=== PATIENT | female | born 1930 | race Caucasian/White ===

== ENCOUNTER 2016-05-22 19:05 | Inpatient (IN) | payer MEDICARE, OTHER ==
[~2016-05-22] VITALS: Ht 162.6 cm; Wt 62.1 kg
[2016-05-23] VITALS (7 sets, daily range): BP systolic 106–139; RESP 16–18; TEMP 97.4–98.4; Ht 162.6 cm; Wt 62.1 kg
[2016-05-23] MEDS ORDERED: CEFTRIAXONE 1 GM VIAL ONE (01:42)
[2016-05-23] MEDS ORDERED: SODIUM CHLORIDE 0.9% 100 ML IV ONE (01:42)
[2016-05-23] MEDS ORDERED: BISACODYL EC 5 MG TAB PO PRN (03:35)
[2016-05-23] MEDS ORDERED: ACETAMINOPHEN 325 MG TAB PO PRN (03:35)
[2016-05-23] MEDS ORDERED: ALU/MAG/SIM 30 ML UDC PO PRN (03:35)
[2016-05-23] MEDS ORDERED: BISACODYL 10 MG SUPP RECTAL PRN (03:35)
[2016-05-23] MEDS ORDERED: MAG HYDROX 30 ML UDC PO PRN (03:35)
[2016-05-23] MEDS ORDERED: SALINE FLUSH 10 ML FLUSH PRN (03:35)
[2016-05-23] MEDS: NEB-ALBUTEROL 2.5 MG/3 ML INH SCH ×3 (05:08→23:08)
[2016-05-23] MEDS: SODIUM CHLORIDE 0.9% FLUSH BAG 500 ML IV SCH (05:58)
[2016-05-23] MEDS: CEFTRIAXONE 1 GM in SODIUM CHLORIDE 0.9% 50 ML IV SCH (09:18)
[2016-05-23] MEDS: SALINE FLUSH 10 ML FLUSH SCH ×2 (09:19→20:25)
[2016-05-23] MEDS: BENZONATATE 100 MG CAP PO SCH ×3 (09:19→20:26)
[2016-05-23] MEDS: AZITHROMYCIN 500 MG in SODIUM CHLORIDE 0.9% 250 ML IV SCH (11:37)
[2016-05-24 03:52] VITALS: BP_SYST 125; RESP 18; TEMP 98.3
[2016-05-24] MEDS: SODIUM CHLORIDE 0.9% FLUSH BAG 500 ML IV SCH (05:11)
[2016-05-24] MEDS: NEB-ALBUTEROL 2.5 MG/3 ML INH SCH ×3 (06:06→23:01)
[2016-05-24 07:44] VITALS: BP_SYST 140; RESP 18; TEMP 100
[2016-05-24] MEDS: BENZONATATE 100 MG CAP PO SCH ×3 (09:00→21:15)
[2016-05-24] MEDS: SALINE FLUSH 10 ML FLUSH SCH ×2 (09:14→21:14)
[2016-05-24] MEDS: CEFTRIAXONE 1 GM in SODIUM CHLORIDE 0.9% 50 ML IV SCH (09:15)
[2016-05-24] MEDS: ONDANSETRON 4 MG VIAL IV PRN ×2 (09:16→19:16)
[2016-05-24] MEDS ORDERED: ACETAMINOPHEN 650 MG SUPP RECTAL ONE (10:20)
[2016-05-24 11:02] VITALS: BP_SYST 128; RESP 20; TEMP 97.7
[2016-05-24] MEDS: FAMOTIDINE 20 MG INJ IV SCH ×2 (11:31→21:14)
[2016-05-24] MEDS: AZITHROMYCIN 500 MG in SODIUM CHLORIDE 0.9% 250 ML IV SCH (12:01)
[2016-05-24] MEDS ORDERED: ASPIRIN 81 MG CHEW TAB PO SCH (14:06)
[2016-05-24] MEDS: KCL CR 20 MEQ TAB PO SCH ×2 (14:52→21:14)
[2016-05-24] MEDS: Furosemide 40 MG TAB PO SCH (14:53)
[2016-05-24] MEDS: ISOSORBIDE MONO 60 MG TAB PO SCH (14:53)
[2016-05-24] MEDS: DILTIAZEM CD 120 MG CAP PO SCH (14:54)
[2016-05-24] MEDS: APIXABAN 2.5 MG TAB PO SCH ×2 (14:54→21:14)
[2016-05-24] MEDS: SACCHA BOULARDII 250MG CAP PO SCH (14:54)
[2016-05-24 15:15] VITALS: BP_SYST 116; RESP 16; TEMP 98.7
[2016-05-24 19:26] VITALS: BP_SYST 102; RESP 16; TEMP 98.3
[2016-05-24 23:43] VITALS: BP_SYST 108; RESP 20; TEMP 98.5
[2016-05-25] VITALS (9 sets, daily range): BP systolic 107–128; RESP 18–20; TEMP 97.4–98.8
[2016-05-25] MEDS: SODIUM CHLORIDE 0.9% FLUSH BAG 500 ML IV SCH (05:06)
[2016-05-25] MEDS: NEB-ALBUTEROL 2.5 MG/3 ML INH SCH (07:58)
[2016-05-25] MEDS: CEFTRIAXONE 1 GM in SODIUM CHLORIDE 0.9% 50 ML IV SCH (08:36)
[2016-05-25] MEDS: SALINE FLUSH 10 ML FLUSH SCH ×2 (08:37→20:05)
[2016-05-25] MEDS: FAMOTIDINE 20 MG INJ IV SCH (08:37)
[2016-05-25] MEDS: DILTIAZEM CD 120 MG CAP PO SCH (08:39)
[2016-05-25] MEDS: APIXABAN 2.5 MG TAB PO SCH ×2 (08:40→20:06)
[2016-05-25] MEDS: SACCHA BOULARDII 250MG CAP PO SCH (08:40)
[2016-05-25] MEDS: ISOSORBIDE MONO 60 MG TAB PO SCH (08:41)
[2016-05-25] MEDS: KCL CR 20 MEQ TAB PO SCH ×2 (08:41→20:06)
[2016-05-25] MEDS: BENZONATATE 100 MG CAP PO SCH ×3 (08:42→20:06)
[2016-05-25] MEDS ORDERED: MISSING DOSE XX ONE ×2 (08:45→10:45)
[2016-05-25] MEDS: AZITHROMYCIN 500 MG in SODIUM CHLORIDE 0.9% 250 ML IV SCH (10:39)
[2016-05-25] MEDS: Furosemide 40 MG TAB PO SCH ×2 (10:40→11:32)
[2016-05-25] MEDS: NEB-ALBUTEROL 2.5 MG/3 ML INH PRN (15:39)
[2016-05-25] MEDS: DUONEB INH SCH (19:19)
[2016-05-25] MEDS: NEB-BUDESONIDE 0.5 MG INH SCH (19:19)
[2016-05-25] MEDS: PREDNISONE 20 MG TAB PO SCH (20:06)
[2016-05-26 03:40] VITALS: BP_SYST 114; RESP 18; TEMP 97.7
[2016-05-26] MEDS: SODIUM CHLORIDE 0.9% FLUSH BAG 500 ML IV SCH (05:00)
[2016-05-26 07:22] VITALS: BP_SYST 122; RESP 16; TEMP 98.1
[2016-05-26] MEDS: NEB-BUDESONIDE 0.5 MG INH SCH ×2 (07:32→19:07)
[2016-05-26] MEDS: DUONEB INH SCH ×3 (07:32→19:07)
[2016-05-26] MEDS: FAMOTIDINE 20 MG INJ IV SCH (07:39)
[2016-05-26] MEDS: NEB-ALBUTEROL 2.5 MG/3 ML INH SCH (07:40)
[2016-05-26] MEDS: BENZONATATE 100 MG CAP PO SCH ×3 (08:20→20:29)
[2016-05-26] MEDS: SALINE FLUSH 10 ML FLUSH SCH ×2 (08:20→20:28)
[2016-05-26] MEDS: SACCHA BOULARDII 250MG CAP PO SCH (08:20)
[2016-05-26] MEDS: CEFTRIAXONE 1 GM in SODIUM CHLORIDE 0.9% 50 ML IV SCH (08:20)
[2016-05-26] MEDS: ISOSORBIDE MONO 60 MG TAB PO SCH (08:20)
[2016-05-26] MEDS: DILTIAZEM CD 120 MG CAP PO SCH (08:21)
[2016-05-26] MEDS: APIXABAN 2.5 MG TAB PO SCH ×2 (08:21→20:29)
[2016-05-26] MEDS: FAMOTIDINE 20 MG TAB PO SCH (08:21)
[2016-05-26] MEDS: KCL CR 20 MEQ TAB PO SCH ×2 (08:21→20:29)
[2016-05-26] MEDS: PREDNISONE 20 MG TAB PO SCH (08:21)
[2016-05-26] MEDS: ONDANSETRON 4 MG VIAL IV PRN (09:45)
[2016-05-26 11:24] VITALS: BP_SYST 118; RESP 18; TEMP 98
[2016-05-26] MEDS ORDERED: METOCLOPRAMIDE 10 MG/2 ML VIAL IV PUSH ONE (12:05)
[2016-05-26 15:15] VITALS: BP_SYST 132; RESP 18; TEMP 98
[2016-05-26 20:10] VITALS: BP_SYST 128; RESP 18; TEMP 98
[2016-05-27] VITALS (7 sets, daily range): BP systolic 105–149; RESP 16–26; TEMP 97.3–99.5
[2016-05-27] MEDS: SODIUM CHLORIDE 0.9% FLUSH BAG 500 ML IV SCH (05:04)
[2016-05-27] MEDS: DUONEB INH SCH ×3 (05:10→19:21)
[2016-05-27] MEDS: NEB-BUDESONIDE 0.5 MG INH SCH ×2 (05:10→19:21)
[2016-05-27] MEDS: Furosemide 40 MG TAB PO SCH (06:32)
[2016-05-27] MEDS ORDERED: PREDNISONE 20 MG TAB PO SCH (09:00)
[2016-05-27] MEDS: SALINE FLUSH 10 ML FLUSH SCH ×2 (09:27→22:03)
[2016-05-27] MEDS: BENZONATATE 100 MG CAP PO SCH ×3 (09:27→22:03)
[2016-05-27] MEDS: CEFTRIAXONE 1 GM in SODIUM CHLORIDE 0.9% 50 ML IV SCH (09:27)
[2016-05-27] MEDS: APIXABAN 2.5 MG TAB PO SCH ×2 (09:27→22:03)
[2016-05-27] MEDS: DILTIAZEM CD 120 MG CAP PO SCH (09:28)
[2016-05-27] MEDS: SACCHA BOULARDII 250MG CAP PO SCH (09:28)
[2016-05-27] MEDS: ISOSORBIDE MONO 60 MG TAB PO SCH (09:28)
[2016-05-27] MEDS: KCL CR 20 MEQ TAB PO SCH ×2 (09:28→22:03)
[2016-05-27] MEDS: FAMOTIDINE 20 MG TAB PO SCH (09:29)
[2016-05-27] MEDS: METHYLPRED SOD SUCC 40 MG VIAL IV SCH (16:13)
[2016-05-27] MEDS: NEB-NACL 3% 4 ML NEBU INH SCH (19:21)
[2016-05-28] MEDS: NEB-NACL 3% 4 ML NEBU INH SCH ×4 (00:30→17:20)
[2016-05-28] MEDS: METHYLPRED SOD SUCC 40 MG VIAL IV SCH ×2 (02:11→10:26)
[2016-05-28 03:27] VITALS: BP_SYST 118; RESP 20; TEMP 97.8
[2016-05-28] MEDS: SODIUM CHLORIDE 0.9% FLUSH BAG 500 ML IV SCH (06:11)
[2016-05-28] MEDS: NEB-BUDESONIDE 0.5 MG INH SCH ×2 (07:06→17:19)
[2016-05-28] MEDS: DUONEB INH SCH ×3 (07:06→17:19)
[2016-05-28 08:05] VITALS: BP_SYST 120; RESP 20; TEMP 98.5
[2016-05-28] MEDS: SALINE FLUSH 10 ML FLUSH SCH ×2 (10:26→20:19)
[2016-05-28] MEDS: Furosemide 40 MG TAB PO SCH (10:26)
[2016-05-28] MEDS: DILTIAZEM CD 120 MG CAP PO SCH (10:26)
[2016-05-28] MEDS: CEFTRIAXONE 1 GM in SODIUM CHLORIDE 0.9% 50 ML IV SCH (10:26)
[2016-05-28] MEDS: FAMOTIDINE 20 MG TAB PO SCH (10:27)
[2016-05-28] MEDS: BENZONATATE 100 MG CAP PO SCH (10:27)
[2016-05-28] MEDS: APIXABAN 2.5 MG TAB PO SCH ×2 (10:27→20:19)
[2016-05-28] MEDS: SACCHA BOULARDII 250MG CAP PO SCH (10:27)
[2016-05-28] MEDS: ISOSORBIDE MONO 60 MG TAB PO SCH (10:27)
[2016-05-28 12:03] VITALS: BP_SYST 110; RESP 20; TEMP 98
[2016-05-28 15:25] VITALS: BP_SYST 138; RESP 20; TEMP 97.9
[2016-05-28 19:23] VITALS: BP_SYST 130; RESP 20; TEMP 98.2
[2016-05-28 23:02] VITALS: BP_SYST 126; RESP 18; TEMP 98
[2016-05-29] MEDS: NEB-NACL 3% 4 ML NEBU INH SCH ×4 (00:30→18:30)
[2016-05-29 03:00] VITALS: BP_SYST 118; RESP 18; TEMP 97.8
[2016-05-29] MEDS: SODIUM CHLORIDE 0.9% FLUSH BAG 500 ML IV SCH (05:58)
[2016-05-29] MEDS: DUONEB INH SCH ×3 (07:24→18:30)
[2016-05-29] MEDS: NEB-BUDESONIDE 0.5 MG INH SCH ×2 (07:24→18:30)
[2016-05-29 07:43] VITALS: BP_SYST 110; RESP 18; TEMP 97.6
[2016-05-29] MEDS: FAMOTIDINE 20 MG TAB PO SCH (10:04)
[2016-05-29] MEDS: Furosemide 20 MG TAB PO SCH (10:04)
[2016-05-29] MEDS: SACCHA BOULARDII 250MG CAP PO SCH (10:04)
[2016-05-29] MEDS: ISOSORBIDE MONO 60 MG TAB PO SCH (10:04)
[2016-05-29] MEDS: DILTIAZEM CD 120 MG CAP PO SCH (10:04)
[2016-05-29] MEDS: APIXABAN 2.5 MG TAB PO SCH ×2 (10:04→21:26)
[2016-05-29] MEDS: PREDNISONE 20 MG TAB PO SCH (10:04)
[2016-05-29 12:03] VITALS: BP_SYST 120; RESP 18; TEMP 97.6
[2016-05-29] MEDS: SALINE FLUSH 10 ML FLUSH SCH ×2 (15:06→21:27)
[2016-05-29] MEDS: CEFTRIAXONE 1 GM in SODIUM CHLORIDE 0.9% 50 ML IV SCH (15:06)
[2016-05-29 15:13] VITALS: BP_SYST 124; RESP 20; TEMP 97.6
[2016-05-29 19:26] VITALS: BP_SYST 138; RESP 20; TEMP 97.9
[2016-05-30] MEDS: NEB-NACL 3% 4 ML NEBU INH SCH ×4 (00:30→20:15)
[2016-05-30 05:44] VITALS: BP_SYST 144; RESP 18; TEMP 95.1
[2016-05-30] MEDS: SODIUM CHLORIDE 0.9% FLUSH BAG 500 ML IV SCH (06:11)
[2016-05-30] MEDS: DUONEB INH SCH ×3 (06:16→20:15)
[2016-05-30] MEDS: NEB-BUDESONIDE 0.5 MG INH SCH ×2 (06:16→20:15)
[2016-05-30 08:24] VITALS: BP_SYST 138; RESP 20; TEMP 97.1
[2016-05-30] MEDS: PREDNISONE 20 MG TAB PO SCH (09:27)
[2016-05-30] MEDS: SALINE FLUSH 10 ML FLUSH SCH ×2 (09:27→21:07)
[2016-05-30] MEDS: DILTIAZEM CD 120 MG CAP PO SCH (09:28)
[2016-05-30] MEDS: APIXABAN 2.5 MG TAB PO SCH ×2 (09:28→21:07)
[2016-05-30] MEDS: FAMOTIDINE 20 MG TAB PO SCH (09:28)
[2016-05-30] MEDS: SACCHA BOULARDII 250MG CAP PO SCH (09:28)
[2016-05-30] MEDS: ISOSORBIDE MONO 60 MG TAB PO SCH (09:28)
[2016-05-30] MEDS: Furosemide 20 MG TAB PO SCH (09:28)
[2016-05-30 12:27] VITALS: BP_SYST 140; RESP 20; TEMP 97.5
[2016-05-30] MEDS: KCL CR 20 MEQ TAB PO SCH ×2 (12:33→21:07)
[2016-05-30 16:01] VITALS: BP_SYST 128; RESP 20; TEMP 97.6
[2016-05-30 20:59] VITALS: BP_SYST 148; RESP 20; TEMP 98.3
[2016-05-30 22:59] VITALS: BP_SYST 150; RESP 20; TEMP 98
[2016-05-31] VITALS (17 sets, daily range): BP systolic 100–155; RESP 15–26; TEMP 97.5–98.2
[2016-05-31] MEDS: BENZONATATE 100 MG CAP PO PRN (00:13)
[2016-05-31] MEDS: NEB-ALBUTEROL 2.5 MG/3 ML INH PRN (00:50)
[2016-05-31] MEDS: NEB-BUDESONIDE 0.5 MG INH SCH ×2 (05:12→19:44)
[2016-05-31] MEDS: DUONEB INH SCH ×3 (05:13→19:44)
[2016-05-31] MEDS: NEB-NACL 3% 4 ML NEBU INH SCH ×2 (05:13→19:46)
[2016-05-31] MEDS: SODIUM CHLORIDE 0.9% FLUSH BAG 500 ML IV SCH (05:22)
[2016-05-31] MEDS: APIXABAN 2.5 MG TAB PO SCH ×2 (10:25→22:05)
[2016-05-31] MEDS: FAMOTIDINE 20 MG TAB PO SCH (10:25)
[2016-05-31] MEDS: ISOSORBIDE MONO 60 MG TAB PO SCH (10:25)
[2016-05-31] MEDS: SALINE FLUSH 10 ML FLUSH SCH ×2 (10:25→20:58)
[2016-05-31] MEDS: SACCHA BOULARDII 250MG CAP PO SCH (10:25)
[2016-05-31] MEDS: DILTIAZEM CD 120 MG CAP PO SCH (10:25)
[2016-05-31] MEDS: Furosemide 20 MG TAB PO SCH (10:26)
[2016-05-31] MEDS: KCL CR 20 MEQ TAB PO SCH (10:26)
[2016-05-31] MEDS: PREDNISONE 20 MG TAB PO SCH (10:26)
[2016-05-31] MEDS ORDERED: NITROGLYCERIN SL 0.4 MG TAB SL ONE (14:27)
[2016-05-31] MEDS ORDERED: MORPHINE 4 MG/ML SYR ONE (14:51)
[2016-05-31] MEDS ORDERED: METOPROLOL 5 MG/5 ML VIAL IV STA (14:56)
[2016-05-31] MEDS ORDERED: MORPHINE 4 MG/ML SYR IV STA (14:56)
[2016-05-31] MEDS ORDERED: CLOPIDOGREL 75 MG TAB PO ONE (15:30)
[2016-05-31] MEDS ORDERED: DEXTROSE 50% SYRINGE 50 ML IV PRN ×2 (15:30→16:15)
[2016-05-31] MEDS ORDERED: NITROGLYCERIN SL 0.4 MG TAB SL PRN (15:30)
[2016-05-31] MEDS ORDERED: LORAZEPAM 0.5 MG TAB PO PRN (15:30)
[2016-05-31] MEDS ORDERED: GLUCAGON 1 MG VIAL IM PRN (15:30)
[2016-05-31] MEDS ORDERED: SALINE FLUSH 10 ML FLUSH PRN (15:30)
[2016-05-31] MEDS ORDERED: MORPHINE 2 MG/ML SYR IV PRN (15:30)
[2016-05-31] MEDS ORDERED: ASPIRIN 81 MG CHEW TAB PO ONE (15:30)
[2016-05-31] MEDS ORDERED: ALU/MAG/SIM 30 ML UDC PO PRN (15:30)
[2016-05-31] MEDS ORDERED: DOCUSATE SOD 100 MG CAP PO PRN (15:30)
[2016-05-31] MEDS ORDERED: METOPROLOL TART 25 MG TAB PO ONE (15:40)
[2016-05-31] MEDS ORDERED: NITROGLYCERIN 2% OINT 1 INCH PKT TOPICAL SCH (16:00)
[2016-05-31] MEDS ORDERED: NITROGLYCERIN 50 MG/250 ML 250 ML IV SCH (16:15)
[2016-05-31] MEDS ORDERED: INSULIN DRIP 1 UNIT/ML 100 ML IV SCH (16:15)
[2016-05-31] MEDS ORDERED: MISSING DOSE XX ONE ×2 (17:25→21:05)
[2016-05-31] MEDS ORDERED: METOPROLOL TART 25 MG TAB PO SCH (21:00)
[2016-05-31] MEDS: METOPROLOL XL 25 MG TAB PO SCH (22:05)
[2016-06-01] VITALS (33 sets, daily range): BP systolic 89–170; RESP 13–27; TEMP 97–98
[2016-06-01] MEDS ORDERED: MISSING DOSE XX ONE ×3 (03:10→14:35)
[2016-06-01] MEDS: BENZONATATE 100 MG CAP PO PRN ×3 (04:33→21:07)
[2016-06-01] MEDS: SODIUM CHLORIDE 0.9% FLUSH BAG 500 ML IV SCH (05:30)
[2016-06-01] MEDS: NEB-NACL 3% 4 ML NEBU INH SCH ×4 (06:30→19:37)
[2016-06-01] MEDS: NEB-BUDESONIDE 0.5 MG INH SCH ×2 (07:48→19:36)
[2016-06-01] MEDS: DUONEB INH SCH ×3 (07:48→19:36)
[2016-06-01] MEDS ORDERED: GLUCAGON 1 MG VIAL IM PRN (08:35)
[2016-06-01] MEDS ORDERED: DEXTROSE 50% SYRINGE 50 ML IV PRN (08:35)
[2016-06-01] MEDS: SACCHA BOULARDII 250MG CAP PO SCH (08:41)
[2016-06-01] MEDS: FAMOTIDINE 20 MG TAB PO SCH ×3 (08:41→21:07)
[2016-06-01] MEDS: APIXABAN 2.5 MG TAB PO SCH ×2 (08:41→21:09)
[2016-06-01] MEDS: DILTIAZEM CD 120 MG CAP PO SCH (08:41)
[2016-06-01] MEDS: Furosemide 20 MG TAB PO SCH (08:42)
[2016-06-01] MEDS: SALINE FLUSH 10 ML FLUSH SCH ×2 (08:42→21:06)
[2016-06-01] MEDS: METOPROLOL XL 25 MG TAB PO SCH ×2 (08:42→21:06)
[2016-06-01] MEDS: ASPIRIN 81 MG CHEW TAB PO SCH (08:42)
[2016-06-01] MEDS ORDERED: PREDNISONE 10 MG TAB PO SCH ×2 (09:00)
[2016-06-01] MEDS: LISINOPRIL 5 MG TAB PO SCH ×2 (09:00→11:11)
[2016-06-01] MEDS ORDERED: ISOSORBIDE MONO 30 MG TAB PO SCH (09:00)
[2016-06-01] MEDS ORDERED: LEVEMIR INSULIN SUBQ SCH (09:00)
[2016-06-01] MEDS: CLOPIDOGREL 75 MG TAB PO SCH ×2 (09:00→11:11)
[2016-06-01] MEDS: SODIUM CHLORIDE 0.45% 1,000 ML IV SCH (09:24)
[2016-06-01] MEDS ORDERED: ISOSORBIDE MONO 30 MG TAB PO ONE (10:40)
[2016-06-01] MEDS ORDERED: INSULIN DRIP 1 UNIT/ML 100 ML IV SCH (13:15)
[2016-06-01] MEDS ORDERED: NITROGLYCERIN SL 0.4 MG TAB SL ONE ×2 (16:07→16:45)
[2016-06-01] MEDS ORDERED: AMIODARONE 150 MG in DEXTROSE 5% 100 ML IV ONE (17:15)
[2016-06-01] MEDS ORDERED: AMIODARONE 900 MG in DEXTROSE 5% EXCEL 500 ML IV SCH (17:15)
[2016-06-01] MEDS: AMIODARONE 450 MG in DEXTROSE 5% AVIVA 250 ML IV SCH (17:59)
[2016-06-01] MEDS ORDERED: NITROGLYCERIN SL 0.4 MG TAB SL PRN (19:15)
[2016-06-01] MEDS: TEMAZEPAM 7.5 MG CAP PO PRN (21:07)
[2016-06-02] VITALS (22 sets, daily range): BP systolic 89–126; RESP 13–25; TEMP 97–98.7
[2016-06-02] MEDS: NEB-NACL 3% 4 ML NEBU INH SCH ×5 (00:30→23:52)
[2016-06-02] MEDS ORDERED: MISSING DOSE XX ONE ×2 (05:10→21:10)
[2016-06-02] MEDS: SODIUM CHLORIDE 0.9% FLUSH BAG 500 ML IV SCH (05:15)
[2016-06-02] MEDS: SODIUM CHLORIDE 0.45% 1,000 ML IV SCH (05:16)
[2016-06-02] MEDS: AMIODARONE 450 MG in DEXTROSE 5% AVIVA 250 ML IV SCH (05:24)
[2016-06-02] MEDS: CLOPIDOGREL 75 MG TAB PO SCH (07:35)
[2016-06-02] MEDS: SACCHA BOULARDII 250MG CAP PO SCH (07:35)
[2016-06-02] MEDS: Furosemide 20 MG TAB PO SCH (07:35)
[2016-06-02] MEDS: FAMOTIDINE 20 MG TAB PO SCH ×2 (07:35→21:10)
[2016-06-02] MEDS: APIXABAN 2.5 MG TAB PO SCH ×2 (07:35→21:10)
[2016-06-02] MEDS: ASPIRIN 81 MG CHEW TAB PO SCH (07:35)
[2016-06-02] MEDS: METOPROLOL XL 25 MG TAB PO SCH ×2 (07:35→21:11)
[2016-06-02] MEDS: BENZONATATE 100 MG CAP PO PRN (07:36)
[2016-06-02] MEDS: ISOSORBIDE MONO 60 MG TAB PO SCH (07:36)
[2016-06-02] MEDS: DUONEB INH SCH ×3 (07:39→20:15)
[2016-06-02] MEDS: NEB-BUDESONIDE 0.5 MG INH SCH ×2 (07:39→20:15)
[2016-06-02] MEDS ORDERED: KCL CR 20 MEQ TAB PO ONE (07:40)
[2016-06-02] MEDS: SALINE FLUSH 10 ML FLUSH SCH ×2 (08:01→20:00)
[2016-06-02] MEDS ORDERED: DEXTROSE 50% SYRINGE 50 ML IV PRN (09:15)
[2016-06-02] MEDS ORDERED: LEVEMIR INSULIN SUBQ ONE (09:15)
[2016-06-02] MEDS ORDERED: GLUCAGON 1 MG VIAL IM PRN (09:15)
[2016-06-02] MEDS: KCL CR 20 MEQ TAB PO SCH (21:10)
[2016-06-02] MEDS: TEMAZEPAM 7.5 MG CAP PO PRN (21:57)
[2016-06-03] VITALS (7 sets, daily range): BP systolic 102–132; RESP 16–20; TEMP 95–98.1
[2016-06-03] MEDS: SODIUM CHLORIDE 0.9% FLUSH BAG 500 ML IV SCH (02:33)
[2016-06-03] MEDS: NEB-NACL 3% 4 ML NEBU INH SCH ×3 (07:49→18:25)
[2016-06-03] MEDS: DUONEB INH SCH ×3 (07:49→18:25)
[2016-06-03] MEDS: NEB-BUDESONIDE 0.5 MG INH SCH ×2 (07:49→18:25)
[2016-06-03] MEDS: SALINE FLUSH 10 ML FLUSH SCH ×2 (08:00→21:01)
[2016-06-03] MEDS ORDERED: LEVEMIR INSULIN SUBQ SCH ×2 (09:00)
[2016-06-03] MEDS: CLOPIDOGREL 75 MG TAB PO SCH (09:52)
[2016-06-03] MEDS: KCL CR 20 MEQ TAB PO SCH ×2 (09:52→21:01)
[2016-06-03] MEDS: FAMOTIDINE 20 MG TAB PO SCH ×2 (09:53→21:01)
[2016-06-03] MEDS: ASPIRIN 81 MG CHEW TAB PO SCH (09:53)
[2016-06-03] MEDS: SACCHA BOULARDII 250MG CAP PO SCH (09:53)
[2016-06-03] MEDS: ISOSORBIDE MONO 60 MG TAB PO SCH (09:53)
[2016-06-03] MEDS: Furosemide 20 MG TAB PO SCH (09:53)
[2016-06-03] MEDS: METOPROLOL XL 25 MG TAB PO SCH ×2 (09:53→21:01)
[2016-06-03] MEDS: APIXABAN 2.5 MG TAB PO SCH ×2 (09:53→21:01)
[2016-06-03] MEDS: LISINOPRIL 5 MG TAB PO SCH (09:53)
[2016-06-03] MEDS ORDERED: Furosemide 40 MG/4 ML VIAL IV ONE (11:05)
[2016-06-03] MEDS ORDERED: KCL CR 20 MEQ TAB PO ONE (11:05)
[2016-06-03] MEDS: SODIUM CHLORIDE 0.45% 1,000 ML IV SCH (14:23)
[2016-06-03] MEDS: AMIODARONE 200 MG TAB PO SCH (15:45)
[2016-06-03] MEDS: BENZONATATE 100 MG CAP PO PRN (15:45)
[2016-06-03] MEDS: SPIRONOLACTONE 25 MG TAB PO SCH (15:46)
[2016-06-03] MEDS ORDERED: PROMETHAZINE 25 MG/ML VIAL IV PRN (16:45)
[2016-06-04] MEDS: NEB-NACL 3% 4 ML NEBU INH SCH ×3 (00:30→11:59)
[2016-06-04 02:53] VITALS: BP_SYST 112; RESP 18; TEMP 97.5
[2016-06-04] MEDS: SODIUM CHLORIDE 0.9% FLUSH BAG 500 ML IV SCH (06:00)
[2016-06-04] MEDS: DUONEB INH SCH ×2 (07:19→11:59)
[2016-06-04] MEDS: NEB-BUDESONIDE 0.5 MG INH SCH (07:19)
[2016-06-04] MEDS: SALINE FLUSH 10 ML FLUSH SCH (07:47)
[2016-06-04 07:48] VITALS: BP_SYST 124; RESP 18
[2016-06-04] MEDS ORDERED: LEVEMIR INSULIN SUBQ SCH (09:00)
[2016-06-04] MEDS ORDERED: MISSING DOSE XX ONE (10:00)
[2016-06-04] MEDS: SODIUM CHLORIDE 0.45% 1,000 ML IV SCH (10:04)
[2016-06-04] MEDS: FAMOTIDINE 20 MG TAB PO SCH (10:06)
[2016-06-04] MEDS: ISOSORBIDE MONO 60 MG TAB PO SCH (10:06)
[2016-06-04] MEDS: APIXABAN 2.5 MG TAB PO SCH (10:06)
[2016-06-04] MEDS: CLOPIDOGREL 75 MG TAB PO SCH (10:06)
[2016-06-04] MEDS: SACCHA BOULARDII 250MG CAP PO SCH (10:07)
[2016-06-04] MEDS: Furosemide 20 MG TAB PO SCH (10:07)
[2016-06-04] MEDS: METOPROLOL XL 25 MG TAB PO SCH (10:07)
[2016-06-04] MEDS: SPIRONOLACTONE 25 MG TAB PO SCH (10:07)
[2016-06-04] MEDS: LISINOPRIL 5 MG TAB PO SCH (10:07)
[2016-06-04] MEDS: ASPIRIN 81 MG CHEW TAB PO SCH (10:07)
[2016-06-04] MEDS: AMIODARONE 200 MG TAB PO SCH (10:07)
[2016-06-04 10:33] VITALS: BP_SYST 116; RESP 16; TEMP 97.8
[2016-06-04] MEDS ORDERED: Furosemide 20 MG TAB PO SCH (11:05)
[2016-06-04] MEDS: KCL CR 20 MEQ TAB PO SCH (12:15)
[2016-06-04 14:24] VITALS: BP_SYST 120; RESP 16; TEMP 97.2
[2016-06-04 15:32] VITALS: BP_SYST 120; RESP 16; TEMP 97.2
== END 2016-06-04 16:20 | DRG 177 ==
LOC: ENRESERVTM → CANRESERV → ENRESERVDT → ER 19:05 → EMR 05-23 01:34 → ENPENDDIS 05-23 01:34 → 4NT 05-23 04:24 → CCU 05-31 16:16 → 4THW 06-02 18:18 → 4NT 06-03 06:26
PROVIDERS: ADMIT Family Medicine; ATTEND Family Medicine
CPT/HCPCS: 36415; 71010; 71020; 71250; 74020; 80048; 80053; 81001; 82550; 82553; 82947; 83735; 83880; 84439; 84443; 84484; 85014; 85018; 85025; 87077; 87088; 87186; 87804; 93005; 93306; 94640; 94799; 96361; 96365; 99223; 99233; 99239

== ENCOUNTER 2016-06-04 10:18 | Inpatient (IN) | payer MEDICARE, OTHER ==
[~2016-06-04] VITALS: Ht 165.1 cm; Wt 59.2 kg
[2016-06-04] MEDS ORDERED: ALU/MAG/SIM 30 ML UDC PO PRN (11:20)
[2016-06-04] MEDS ORDERED: MAG HYDROX 30 ML UDC PO PRN (11:20)
[2016-06-04] MEDS ORDERED: GLUCAGON 1 MG VIAL IM PRN (11:20)
[2016-06-04] MEDS ORDERED: DEXTROSE 50% SYRINGE 50 ML IV PRN (11:20)
[2016-06-04] MEDS ORDERED: PNEUMO VAC 25 MCG/0.5 ML VL IM.VACC ONE (11:20)
[2016-06-04] MEDS ORDERED: POLYETHYLENE GLYCOL 17 GM PACKET PO PRN (11:20)
[2016-06-04] MEDS ORDERED: NITROGLYCERIN SL 0.4 MG TAB SL PRN (11:20)
[2016-06-04] MEDS ORDERED: ACETAMINOPHEN 325 MG TAB PO PRN (11:20)
[2016-06-04 16:47] VITALS: BMI 22.4
[2016-06-04 17:58] VITALS: RESP 16
[2016-06-04] MEDS: DUONEB INH SCH (17:58)
[2016-06-04] MEDS: NEB-BUDESONIDE 0.5 MG INH SCH (17:58)
[2016-06-04 20:11] VITALS: BP_SYST 112; RESP 20; TEMP 98.5
[2016-06-04] MEDS ORDERED: TUBERCULIN PPD 5 UNIT SYR ID.VACC ONE (21:00)
[2016-06-04] MEDS: DONEPEZIL 10 MG TABLET PO SCH (21:28)
[2016-06-04] MEDS: METOPROLOL TART 25 MG TAB PO SCH (21:28)
[2016-06-04] MEDS: FAMOTIDINE 20 MG TAB PO SCH (21:28)
[2016-06-04] MEDS: APIXABAN 2.5 MG TAB PO SCH (21:28)
[2016-06-05 06:35] VITALS: BP_SYST 122; RESP 18; TEMP 97.8
[2016-06-05 07:30] VITALS: BP_SYST 102; RESP 20; TEMP 97.5
[2016-06-05] MEDS: NEB-BUDESONIDE 0.5 MG INH SCH ×2 (07:31→18:53)
[2016-06-05] MEDS: DUONEB INH SCH ×3 (07:31→18:53)
[2016-06-05] MEDS ORDERED: DUONEB INH PRN (08:35)
[2016-06-05] MEDS: FAMOTIDINE 20 MG TAB PO SCH ×2 (08:56→21:08)
[2016-06-05] MEDS: ESCITALOPRAM 10 MG TAB PO SCH (08:56)
[2016-06-05] MEDS: Furosemide 20 MG TAB PO SCH (08:56)
[2016-06-05] MEDS: METOPROLOL TART 25 MG TAB PO SCH ×2 (08:57→21:08)
[2016-06-05] MEDS: APIXABAN 2.5 MG TAB PO SCH ×2 (08:57→21:08)
[2016-06-05] MEDS: ISOSORBIDE MONO 60 MG TAB PO SCH (08:57)
[2016-06-05] MEDS: CLOPIDOGREL 75 MG TAB PO SCH (08:57)
[2016-06-05] MEDS: AMIODARONE 200 MG TAB PO SCH (08:57)
[2016-06-05] MEDS: KCL CR 10 MEQ TAB PO SCH (08:57)
[2016-06-05] MEDS: ASPIRIN 81 MG CHEW TAB PO SCH (08:57)
[2016-06-05] MEDS: LISINOPRIL 5 MG TAB PO SCH (08:57)
[2016-06-05] MEDS: LEVEMIR INSULIN SUBQ SCH (09:27)
[2016-06-05 16:31] VITALS: BP_SYST 118; RESP 18; TEMP 97.8
[2016-06-05] MEDS: NYSTATIN 500,000 UNITS/5 ML SUSP SWISH.SWAL SCH ×2 (17:27→21:10)
[2016-06-05] MEDS: DONEPEZIL 10 MG TABLET PO SCH (21:08)
[2016-06-06 05:31] VITALS: BP_SYST 120; RESP 20; TEMP 97.4
[2016-06-06] MEDS: NEB-BUDESONIDE 0.5 MG INH SCH ×2 (06:51→17:21)
[2016-06-06] MEDS: DUONEB INH SCH ×3 (06:51→17:21)
[2016-06-06] MEDS: LEVEMIR INSULIN SUBQ SCH (09:14)
[2016-06-06] MEDS: FAMOTIDINE 20 MG TAB PO SCH ×2 (09:16→20:43)
[2016-06-06] MEDS: METOPROLOL TART 25 MG TAB PO SCH ×2 (09:16→20:43)
[2016-06-06] MEDS: ESCITALOPRAM 10 MG TAB PO SCH (09:16)
[2016-06-06] MEDS: KCL CR 10 MEQ TAB PO SCH (09:16)
[2016-06-06] MEDS: APIXABAN 2.5 MG TAB PO SCH ×2 (09:16→20:43)
[2016-06-06] MEDS: LISINOPRIL 5 MG TAB PO SCH (09:16)
[2016-06-06] MEDS: CLOPIDOGREL 75 MG TAB PO SCH (09:16)
[2016-06-06] MEDS: ASPIRIN 81 MG CHEW TAB PO SCH (09:16)
[2016-06-06] MEDS: AMIODARONE 200 MG TAB PO SCH (09:16)
[2016-06-06] MEDS: ISOSORBIDE MONO 60 MG TAB PO SCH (09:16)
[2016-06-06] MEDS: Furosemide 20 MG TAB PO SCH (09:16)
[2016-06-06] MEDS: NYSTATIN 500,000 UNITS/5 ML SUSP SWISH.SWAL SCH (09:16)
[2016-06-06] MEDS: ERGOCALCIFEROL 50,000 UNITS (1.25 MG) CAP PO SCH (09:17)
[2016-06-06 10:30] VITALS: BP_SYST 118; RESP 20; TEMP 97.5
[2016-06-06 10:37] VITALS: Ht 165.1 cm; Wt 59.2 kg
[2016-06-06] MEDS ORDERED: [UNRECOGNIZED DRUG - MIXTURE] SWISH.SWAL SCH ×3 (12:29)
[2016-06-06] MEDS: [UNRECOGNIZED DRUG - MIXTURE] SWISH.SWAL SCH ×9 (13:00→23:49)
[2016-06-06 16:58] VITALS: BP_SYST 138; RESP 18; TEMP 98.1
[2016-06-06] MEDS: DONEPEZIL 10 MG TABLET PO SCH (20:43)
[2016-06-06] MEDS ORDERED: SKIN TEST: READ AND RECORD XX SCH (21:00)
[2016-06-06 23:56] VITALS: BP_SYST 110; RESP 18; TEMP 98
[2016-06-07] MEDS: [UNRECOGNIZED DRUG - MIXTURE] SWISH.SWAL SCH ×9 (05:52→18:33)
[2016-06-07] MEDS: NEB-BUDESONIDE 0.5 MG INH SCH ×2 (06:09→19:38)
[2016-06-07] MEDS: DUONEB INH SCH ×3 (06:09→19:38)
[2016-06-07 09:32] VITALS: BP_SYST 112; RESP 18; TEMP 98.1
[2016-06-07] MEDS: FAMOTIDINE 20 MG TAB PO SCH ×2 (09:56→21:22)
[2016-06-07] MEDS: LEVEMIR INSULIN SUBQ SCH (09:56)
[2016-06-07] MEDS: METOPROLOL TART 25 MG TAB PO SCH ×2 (09:56→21:22)
[2016-06-07] MEDS: APIXABAN 2.5 MG TAB PO SCH ×2 (09:56→21:22)
[2016-06-07] MEDS: Furosemide 20 MG TAB PO SCH (09:56)
[2016-06-07] MEDS: KCL CR 10 MEQ TAB PO SCH (09:56)
[2016-06-07] MEDS: LISINOPRIL 5 MG TAB PO SCH (09:57)
[2016-06-07] MEDS: CLOPIDOGREL 75 MG TAB PO SCH (09:57)
[2016-06-07] MEDS: ISOSORBIDE MONO 60 MG TAB PO SCH (09:57)
[2016-06-07] MEDS: AMIODARONE 200 MG TAB PO SCH (09:57)
[2016-06-07] MEDS: ESCITALOPRAM 10 MG TAB PO SCH (09:57)
[2016-06-07] MEDS: ASPIRIN 81 MG CHEW TAB PO SCH (09:57)
[2016-06-07] MEDS: MICONAZOLE 2% PWD TOPICAL SCH ×2 (12:52→21:23)
[2016-06-07 19:49] VITALS: BP_SYST 110; RESP 20; TEMP 97.6
[2016-06-07] MEDS: DONEPEZIL 10 MG TABLET PO SCH (21:47)
[2016-06-08] MEDS: [UNRECOGNIZED DRUG - MIXTURE] SWISH.SWAL SCH ×12 (00:06→18:17)
[2016-06-08 00:10] VITALS: BP_SYST 112; RESP 18; TEMP 97.8
[2016-06-08] MEDS: DUONEB INH SCH ×3 (07:08→19:31)
[2016-06-08] MEDS: NEB-BUDESONIDE 0.5 MG INH SCH ×2 (07:08→19:31)
[2016-06-08] MEDS: ISOSORBIDE MONO 60 MG TAB PO SCH (08:59)
[2016-06-08] MEDS: ESCITALOPRAM 10 MG TAB PO SCH (08:59)
[2016-06-08] MEDS: AMIODARONE 200 MG TAB PO SCH (09:00)
[2016-06-08] MEDS: LISINOPRIL 5 MG TAB PO SCH (09:00)
[2016-06-08] MEDS: APIXABAN 2.5 MG TAB PO SCH ×2 (09:00→23:02)
[2016-06-08] MEDS: KCL CR 10 MEQ TAB PO SCH (09:00)
[2016-06-08] MEDS: Furosemide 20 MG TAB PO SCH (09:00)
[2016-06-08] MEDS: ASPIRIN 81 MG CHEW TAB PO SCH (09:00)
[2016-06-08] MEDS: CLOPIDOGREL 75 MG TAB PO SCH (09:00)
[2016-06-08] MEDS: METOPROLOL TART 25 MG TAB PO SCH ×2 (09:01→23:02)
[2016-06-08] MEDS: MICONAZOLE 2% PWD TOPICAL SCH ×2 (09:01→23:05)
[2016-06-08] MEDS: FAMOTIDINE 20 MG TAB PO SCH ×2 (09:01→23:02)
[2016-06-08 10:04] VITALS: BP_SYST 100; RESP 18; TEMP 97.8
[2016-06-08] MEDS: LEVEMIR INSULIN SUBQ SCH (13:04)
[2016-06-08 16:01] VITALS: BP_SYST 100; RESP 18; TEMP 97.7
[2016-06-08 16:06] VITALS: BP_SYST 90; RESP 18; TEMP 97.1
[2016-06-08] MEDS: DONEPEZIL 10 MG TABLET PO SCH (23:05)
[2016-06-09] MEDS: [UNRECOGNIZED DRUG - MIXTURE] SWISH.SWAL SCH ×9 (00:38→12:00)
[2016-06-09 03:08] VITALS: BP_SYST 102; RESP 18; TEMP 97.8
[2016-06-09] MEDS: NEB-BUDESONIDE 0.5 MG INH SCH ×2 (07:10→18:41)
[2016-06-09] MEDS: DUONEB INH SCH ×3 (07:10→18:41)
[2016-06-09] MEDS: MICONAZOLE 2% PWD TOPICAL SCH ×2 (09:00→21:21)
[2016-06-09] MEDS: ASPIRIN 81 MG CHEW TAB PO SCH (10:15)
[2016-06-09] MEDS: KCL CR 10 MEQ TAB PO SCH (10:15)
[2016-06-09] MEDS: FAMOTIDINE 20 MG TAB PO SCH ×2 (10:15→21:19)
[2016-06-09] MEDS: AMIODARONE 200 MG TAB PO SCH (10:15)
[2016-06-09] MEDS: LISINOPRIL 5 MG TAB PO SCH (10:15)
[2016-06-09] MEDS: APIXABAN 2.5 MG TAB PO SCH ×2 (10:15→21:19)
[2016-06-09] MEDS: ISOSORBIDE MONO 60 MG TAB PO SCH (10:16)
[2016-06-09] MEDS: CLOPIDOGREL 75 MG TAB PO SCH (10:16)
[2016-06-09] MEDS: ESCITALOPRAM 10 MG TAB PO SCH (10:16)
[2016-06-09] MEDS: Furosemide 20 MG TAB PO SCH (10:16)
[2016-06-09] MEDS: METOPROLOL TART 25 MG TAB PO SCH ×2 (10:17→21:20)
[2016-06-09] MEDS: LEVEMIR INSULIN SUBQ SCH (10:18)
[2016-06-09 11:33] VITALS: BP_SYST 110; RESP 20; TEMP 97.4
[2016-06-09 16:08] VITALS: BP_SYST 112; RESP 18; TEMP 97.8
[2016-06-09] MEDS ORDERED: MISSING DOSE XX ONE (19:50)
[2016-06-09] MEDS: DONEPEZIL 10 MG TABLET PO SCH (21:19)
[2016-06-10 03:05] VITALS: BP_SYST 102; RESP 18
[2016-06-10 03:39] VITALS: TEMP 96.7
[2016-06-10] MEDS: NEB-BUDESONIDE 0.5 MG INH SCH (07:16)
[2016-06-10] MEDS: DUONEB INH SCH ×3 (07:16→23:23)
[2016-06-10] MEDS: CLOPIDOGREL 75 MG TAB PO SCH (08:17)
[2016-06-10] MEDS: Furosemide 20 MG TAB PO SCH (08:17)
[2016-06-10] MEDS: ASPIRIN 81 MG CHEW TAB PO SCH (08:17)
[2016-06-10] MEDS: ESCITALOPRAM 10 MG TAB PO SCH (08:17)
[2016-06-10] MEDS: LISINOPRIL 5 MG TAB PO SCH (08:17)
[2016-06-10] MEDS: AMIODARONE 200 MG TAB PO SCH (08:18)
[2016-06-10] MEDS: KCL CR 10 MEQ TAB PO SCH (08:18)
[2016-06-10] MEDS: FAMOTIDINE 20 MG TAB PO SCH ×2 (08:18→21:21)
[2016-06-10] MEDS: METOPROLOL TART 25 MG TAB PO SCH ×2 (08:18→21:21)
[2016-06-10] MEDS: ISOSORBIDE MONO 60 MG TAB PO SCH (08:18)
[2016-06-10] MEDS: APIXABAN 2.5 MG TAB PO SCH ×2 (08:18→21:21)
[2016-06-10] MEDS: MICONAZOLE 2% PWD TOPICAL SCH ×2 (08:19→21:21)
[2016-06-10] MEDS: LEVEMIR INSULIN SUBQ SCH (08:27)
[2016-06-10 10:50] VITALS: RESP 18; TEMP 97.8
[2016-06-10 17:54] VITALS: BP_SYST 104; RESP 20; TEMP 98
[2016-06-10] MEDS: DONEPEZIL 10 MG TABLET PO SCH (21:21)
[2016-06-11 05:36] VITALS: BP_SYST 100; RESP 18
[2016-06-11 05:41] VITALS: TEMP 97.8
[2016-06-11] MEDS: DUONEB INH SCH ×3 (07:40→22:50)
[2016-06-11] MEDS: AMIODARONE 200 MG TAB PO SCH (08:53)
[2016-06-11] MEDS: APIXABAN 2.5 MG TAB PO SCH ×2 (08:54→21:06)
[2016-06-11] MEDS: ISOSORBIDE MONO 60 MG TAB PO SCH (08:54)
[2016-06-11] MEDS: ASPIRIN 81 MG CHEW TAB PO SCH (08:54)
[2016-06-11] MEDS: METOPROLOL TART 25 MG TAB PO SCH ×2 (08:54→21:07)
[2016-06-11] MEDS: CLOPIDOGREL 75 MG TAB PO SCH (08:54)
[2016-06-11] MEDS: ESCITALOPRAM 10 MG TAB PO SCH (08:54)
[2016-06-11] MEDS: FAMOTIDINE 20 MG TAB PO SCH ×2 (08:54→21:06)
[2016-06-11] MEDS: SITAGLIPTIN 50 MG TAB PO SCH (08:54)
[2016-06-11] MEDS: MICONAZOLE 2% PWD TOPICAL SCH ×2 (08:55→21:10)
[2016-06-11] MEDS ORDERED: SITAGLIPTIN 50 MG TAB PO SCH (09:00)
[2016-06-11] MEDS ORDERED: LISINOPRIL 5 MG TAB PO SCH (09:00)
[2016-06-11] MEDS ORDERED: LISINOPRIL 2.5 MG TAB PO SCH (09:00)
[2016-06-11 09:48] VITALS: BP_SYST 100; RESP 18; TEMP 97.8
[2016-06-11 10:15] VITALS: BP_SYST 102; RESP 18; TEMP 98
[2016-06-11 16:25] VITALS: BP_SYST 110; RESP 18; TEMP 97
[2016-06-11 20:44] VITALS: BP_SYST 108; RESP 16; TEMP 98
[2016-06-11] MEDS ORDERED: TUBERCULIN PPD 5 UNIT SYR ID.VACC ONE (21:00)
[2016-06-11] MEDS: DONEPEZIL 10 MG TABLET PO SCH (21:06)
[2016-06-12 03:49] VITALS: BP_SYST 102; RESP 18; TEMP 97.7
[2016-06-12] MEDS: DUONEB INH SCH ×3 (06:56→22:53)
[2016-06-12] MEDS: FAMOTIDINE 20 MG TAB PO SCH ×2 (08:46→20:53)
[2016-06-12] MEDS: APIXABAN 2.5 MG TAB PO SCH ×2 (08:46→20:53)
[2016-06-12] MEDS: SITAGLIPTIN 50 MG TAB PO SCH (08:46)
[2016-06-12] MEDS: MICONAZOLE 2% PWD TOPICAL SCH ×2 (08:46→20:54)
[2016-06-12] MEDS: AMIODARONE 200 MG TAB PO SCH (08:46)
[2016-06-12] MEDS: ASPIRIN 81 MG CHEW TAB PO SCH (08:46)
[2016-06-12] MEDS: METOPROLOL TART 25 MG TAB PO SCH ×2 (08:46→20:53)
[2016-06-12] MEDS: ISOSORBIDE MONO 60 MG TAB PO SCH (08:46)
[2016-06-12] MEDS ORDERED: MISSING DOSE XX ONE (08:55)
[2016-06-12 11:13] VITALS: BP_SYST 118; RESP 16; TEMP 97.1
[2016-06-12] MEDS: ESCITALOPRAM 10 MG TAB PO SCH (12:44)
[2016-06-12] MEDS: Furosemide 20 MG TAB PO SCH (12:44)
[2016-06-12] MEDS: CLOPIDOGREL 75 MG TAB PO SCH (12:44)
[2016-06-12 20:03] VITALS: BP_SYST 108; RESP 20; TEMP 98.2
[2016-06-12] MEDS: DONEPEZIL 10 MG TABLET PO SCH (20:53)
[2016-06-13 03:11] VITALS: BP_SYST 112; RESP 18; TEMP 97.6
[2016-06-13] MEDS: DUONEB INH SCH (06:25)
[2016-06-13 08:35] VITALS: BP_SYST 120; RESP 18; TEMP 98.1
[2016-06-13] MEDS: ASPIRIN 81 MG CHEW TAB PO SCH (08:40)
[2016-06-13] MEDS: Furosemide 20 MG TAB PO SCH (08:40)
[2016-06-13] MEDS: METOPROLOL TART 25 MG TAB PO SCH (08:41)
[2016-06-13] MEDS: ERGOCALCIFEROL 50,000 UNITS (1.25 MG) CAP PO SCH (08:42)
[2016-06-13] MEDS: ESCITALOPRAM 10 MG TAB PO SCH (08:42)
[2016-06-13] MEDS: FAMOTIDINE 20 MG TAB PO SCH (08:42)
[2016-06-13] MEDS: SITAGLIPTIN 50 MG TAB PO SCH (08:42)
[2016-06-13] MEDS: ISOSORBIDE MONO 60 MG TAB PO SCH (08:42)
[2016-06-13] MEDS: APIXABAN 2.5 MG TAB PO SCH (08:42)
[2016-06-13] MEDS: AMIODARONE 200 MG TAB PO SCH (08:42)
[2016-06-13] MEDS: CLOPIDOGREL 75 MG TAB PO SCH (08:42)
[2016-06-13] MEDS: MICONAZOLE 2% PWD TOPICAL SCH (08:47)
[2016-06-13] MEDS ORDERED: KCL CR 20 MEQ TAB PO ONE (09:55)
== END 2016-06-13 11:18 | disposition home health service (06) | DRG 555 ==
LOC: NF 16:50 → ENPENDDIS 16:50 → NF 06-06 13:38
PROVIDERS: ADMIT Internal Medicine; ATTEND Internal Medicine
DX: R26.2 Difficulty in walking, not elsewhere classified (principal); J69.0 Pneumonitis due to inhalation of food and vomit; I21.4 Non-ST elevation (NSTEMI) myocardial infarction; I42.9 Cardiomyopathy, unspecified; E11.22 Type 2 diabetes mellitus with diabetic chronic kidney disease; R13.10 Dysphagia, unspecified; N39.0 Urinary tract infection, site not specified; F03.90 Unspecified dementia, unspecified severity, without behavioral disturbance, psychotic disturbance, mood disturbance, and anxiety; E11.9 Type 2 diabetes mellitus without complications; N18.3 Chronic kidney disease, stage 3 (moderate); R53.1 Weakness
CPT/HCPCS: 36415; 80048; 82947; 83036; 83880; 85025; 86580; 94640; 94799; 99306; 99308; 99309; 99316